=== PATIENT | female | born 1940 | race Caucasian/White ===

== ENCOUNTER 2016-12-13 22:15 | Observation (INO) | payer OTHER ==
--- NOTE | ~2016-12-13 | HP ---
History And Physical [facility] [id number] [place]. [address] NAME: QUETA MARTIN : 44 STATUS : ADM Anyi PAT#: [id number] AGE: 76 ADM/REG DATE : 12/13/16 MR#: [id number] REPORT SERV DATE: 12/14/16 DICTATED BY: ELIZA BOBBY DATE: 12/14/16 REPORT STATUS : Draft TRANSCRIBED BY: MODMavis DATE: 12/14/16 DATE OF ADMISSION: 12/13/2016 PRIMARY CARE PROVIDER: Danya Abad M.D. The patient has a commercial marketing specialist as well. CHIEF COMPLAINT: Chest pain onset 1300 yesterday. HISTORY OF PRESENT ILLNESS: This is a pleasant 76-year-old female with a history of rheumatoid arthritis on longstanding steroids for approximately two years which has recently been discontinued. She does also have hypertension and GERD. She went to the emergency room yesterday afternoon because she had pleuritic chest pain every time she took a deep breath and sitting up in position changes. She reports there is no exertional component and pain is better with shallow breaths and sitting still. She reports that her commercial marketing specialist wanted her to stop steroids and that she had developed left shoulder pain and so her primary care provider gave her prednisone Dosepak for this left shoulder aching one and half weeks ago. She recently completed it and now she reports that she has the chest pain deep in her muscles with muscle tightening sensation with deep breath and sitting up. She reports it over the left lower chest. She feels that it is secondary to weaning off steroids and came to the ER because "I think I need steroids again." She denies any shortness of breath, palpitations, cough, or any other symptoms. She reports that she is allergic to NSAIDs. She denies any muscle aches or generalized cramping. She does have general fatigue that is longstanding. PAST MEDICAL HISTORY: 1. Hypertension. 2. Pneumonia (remotely). 3. Rheumatoid arthritis on multiple medications including methotrexate and until recently steroids. She reports a recent flare in her shoulder after discontinuing steroids and that resolved with recent steroid Dosepak. 4. Longstanding steroid use for approximately two years, off it for approximately one week. 5. Sinus infection. 6. C. diff. 7. GERD. 8. Mild emphysema in the upper lobes per CTA 06/20/2014. PAST SURGICAL HISTORY: 1. Hysterectomy. 2. Remote thyroidectomy in 1976. 3. Tubal ligation. 4. Trigger finger release. 5. Bilateral carpal tunnel surgery. 6. Thumb surgery. 7. Right hip replacement. History And Physical [address] [address] NAME: QUETA MARTIN : 44 STATUS : ADM Anyi PAT#: [id number] AGE: 76 ADM/REG DATE : 12/13/16 MR#: [id number] REPORT SERV DATE: 12/14/16 DICTATED BY: ELIZA BOBBY DATE: 12/14/16 REPORT STATUS : Draft TRANSCRIBED BY: GAL DATE: 12/14/16 SOCIAL HISTORY: . She has a supportive daughter. She is not working. Former tobacco use, quitting in 2001. She denies alcohol or illicit drug use. She has no formal exercise program. FAMILY HISTORY: Brother with diabetes mellitus and myocardial infarction. Mother with myocardial infarction at the age of 52. REVIEW OF SYSTEMS: The patient's last stress test was approximately 2 years ago and it was a treadmill only stress test performed at the primary care provider's office prior to undergoing hip surgery. She reports it was normal. Previous to that, she had a stress echocardiogram 12/2011 and she reports that was normal as well. She denies ever having a cath arteriogram. As above per HPI, all other systems reviewed and negative. ALLERGIES: 1. IBUPROFEN: REACTION, ANXIETY. 2. CELEBREX: REACTION, SEVERE ANXIETY, ITCHING. 3. THE PATIENT TELLS ME SHE IS ALLERGIC TO ALL NSAIDS WITH REACTION OF ANXIETY (THIS IS NOT ON MED LIST). HOME MEDICATIONS: Reviewed and are as follows: 1. Fosamax 70 mg p.o.q.7 days on Wednesdays. 2. Aspirin 81 mg p.o. with supper. 3. Zyrtec 10 mg p.o. every morning. 4. Tylenol with aspirin one-to-two tabs p.o. daily p.r.n. headache/sinus pain. 5. Flonase nasal spray 2 sprays at bedtime in both nostrils. 6. Folic acid 1 tablet p.o. every morning. 7. Hydrocodone APAP 10/325 mg p.o. daily one tablet p.o. daily p.r.n. pain. 8. Irbesartan 300 mg p.o. every morning. 9. Methotrexate 17.5 mg p.o.q.7 days on Mondays. 10.Metoprolol tartrate 25 mg p.o. at breakfast and supper. 11.Montelukast 10 mg p.o. at bedtime. 12.Omeprazole 40 mg p.o. every morning. 13.The patient completed prednisone 10 mg 12 day taper Dosepak which she completed on 12/08/2016. 14.Restoril 15 mg p.o. at bedtime. 15.Maxzide 37.5/25 one tablet p.o. every morning. PHYSICAL EXAMINATION: VITAL SIGNS: Oxygen saturation 95% on room air. Weight 72.12 kg with a body mass index of 32.1. Temperature 98.4, pulse 97, initial blood pressure in the ER was 170/77, most recent blood pressure 170/87 (with a.m. blood pressure medications held for stress test. GENERAL: Well developed, well nourished. In no apparent distress. HEENT: Head normocephalic. No xanthelasma. Sclera clear, anicteric. Moist mucous membranes without pallor. No lymphadenopathy. No deficits noted. NECK: Trachea midline. Supple. No thyromegaly, JVD, or bruits. History And Physical [address] [address] NAME: QUETA MARTIN : 44 STATUS : ADM Anyi PAT#: [id number] AGE: 76 ADM/REG DATE : 12/13/16 MR#: [id number] REPORT SERV DATE: 12/14/16 DICTATED BY: ELIZA BOBBY DATE: 12/14/16 REPORT STATUS : Draft TRANSCRIBED BY: GAL DATE: 12/14/16 RESPIRATORY: Unlabored respirations. Breath sounds clear bilaterally to posterior auscultation. No wheezes, rhonchi or crackles. CARDIOVASCULAR: Regular rate and rhythm. No murmur, rub, or gallop appreciated. No chest wall tenderness to palpation. ABDOMEN: Soft, nontender, and nondistended. Active bowel sounds auscultated x4 quadrants. No organomegaly and no masses. No aortic bruit. EXTREMITIES: DP/PT and radial pulses 2+ bilaterally. No clubbing, cyanosis, or edema. SKIN: Warm, dry, intact. No rash. Normal turgor. MUSCULOSKELETAL: Moves all extremities in bed without difficulty. NEURO/PSYCH: Alert and oriented x3 with no acute distress. Affect appropriate to current situation. LABORATORY DATA: 1. BMP: Sodium 135, potassium was initially 2.9, after repletion 3.3, with subsequent repletion ordered by myself. Creatinine 1.14. Glucose 131. Magnesium was low at 1.3. 2. CBC: White blood cell count was 11.5 (recently completed steroid Dosepak). Hemoglobin 12, hematocrit 34.6, and platelets 343. 3. Troponin less than 0.02 x2. STUDIES: 1. Chest x-ray PA and lateral, no acute cardiopulmonary disease identified. 2. EKGs personally interpreted x2, normal sinus rhythm with occasional PVCs on 1, the other 1 normal sinus rhythm. Q-wave noted in lead III and AVF. No ischemia. 3. Telemetry normal sinus rhythm, 90s to 100. ASSESSMENT AND PLAN: 1. Pleuritic chest pain. This has atypical features. Acute coronary syndrome was ruled out with negative troponins and EKG with no ischemia. There were Q-waves noted in the inferior leads. Chest pain is provoked by inspiration and by position changes in bed, especially sitting up. She continues to have these symptoms if she takes deep breaths and moves in bed. Her symptoms are better if she lays still. Cardiac risk factors include age of 76, hypertension, obesity, family history of myocardial infarction. I will plan on a nuclear stress test today for risk stratification. If it is low risk with no ischemia, then the RN may discharge the patient home with followup with primary care provider in one week. The symptoms do appear to be musculoskeletal with a tightening sensation in her muscles when she takes a deep breath and moves. I recommended nonsteroidal anti-inflammatories but the patient reports she is afraid to try any NSAIDs as she develops anxiety with Motrin and Celebrex. She wishes to have a steroid Dosepak until she is able to see her primary care provider and commercial marketing specialist. Therefore, I will provide her with a Medrol Dosepak for her pleuritic chest pain symptoms. 2. Hypertension. She is to monitor her blood pressure daily, record, and bring it in to her primary care provider as her blood pressure is elevated at this time. She feels that her blood pressure is elevated because of her pleuritic chest pain. We will continue home medications on discharge which include Maxzide and irbesartan and metoprolol. 3. Hypokalemia. Continue to replete. I have requested that her potassium will be History And Physical [facility] [address] [place]. [address] NAME: QUETA MARTIN : 44 STATUS : ADM Anyi PAT#: [id number] AGE: 76 ADM/REG DATE : 12/13/16 MR#: [id number] REPORT SERV DATE: 12/14/16 DICTATED BY: ELIZA BOBBY DATE: 12/14/16 REPORT STATUS : Draft TRANSCRIBED BY: GAL DATE: 12/14/16 rechecked in 5-to-7 days by her primary care provider and a script has been left for this. I will prescribe potassium chloride on discharge with no refills. I suspect the hypokalemia is secondary to the hydrochlorothiazide medication. I encouraged her to also have a potassium-rich diet. Again, follow up with primary care provider in approximately one week for further monitoring and management of blood pressure. She is to check her blood pressure daily, record, and bring it in to PCP. 4. Obesity. I have encouraged weight loss and dietary changes. 5. GERD. This is noted and appears to be quiescent at this time. 6. Family history of ID, this is noted. 7. Rheumatoid arthritis. She was weaned off steroids on the after being on steroids for approximately two years. I will provide her with a Dosepak at this time per her request for the musculoskeletal/pleuritic symptoms. She will need to discuss this further with primary care provider and with the commercial marketing specialist. 8. Further recommendations are forthcoming for rounding logistics center manager for [facility] who will see her down in the stress testing area. BRANDON/GAL Eliza Bobby NP / [id number] CC: KHADAR August M.D.
[2016-12-13 21:01] LABS: BASOPHILS 0.4 %; BASOPHILS ABSOLUTE 0.05 10/3/uL (0.0-0.16); EOSINOPHILS 2.4 %; EOSINOPHILS ABSOLUTE 0.28 10/3/uL (0.0-0.53); ER CBC TAT 0 Hrs 08 Mins; HEMATOCRIT 34.6 % (36.0-48.0); IMMATURE GRANULOCYTES 0.3 %; IMMATURE GRANULOCYTES ABSOLUTE 0.03 10/3/uL (0.0-0.11); LYMPHOCYTES 31.3 %; LYMPHOCYTES ABSOLUTE 3.61 10/3/uL (0.67-4.30); MEAN CORPUSCULAR HEMOGLOB 32.3 pg (26.0-34.0); MEAN PLATELET VOLUME 9.8 fL (9.2-13.0); MONOCYTES ABSOLUTE 1.04 10/3/uL (0.21-1.20); NEUTROPHILS 56.6 %; NEUTROPHILS ABSOLUTE 6.53 10/3/uL (2.02-8.40); PLATELET COUNT 343 10/3/uL (150-400); RBC DISTRIBUTION WIDTH 14.2 % (12.0-16.0); RED CELL COUNT 3.71 10/6/uL (4.0-5.6); WHITE BLOOD CELLS 11.5 10/3/uL (4.5-10.5)
[2016-12-13 21:02] LABS: MANUAL DIFF NO %; MEAN CORPUS HGB CONC 34.7 g/dL (32.0-36.0); MEAN CORPUSCULAR VOLUME 93.3 fL (80-100)
[2016-12-13 21:09] LABS: INTERNATIONAL NORMAL RATI 1.1 UNITS (-); PARTIAL THROMBO TIME 26.3 SEC (22.5-37.2); PROTIME (NOT ORD) 13.8 SEC (12.0-14.5)
[2016-12-13 21:20] LABS: BUN (BLOOD UREA NITROGEN) 11 MG/DL (6-23); CALCIUM, SERUM 9.8 MG/DL (8.5-10.4); CHEST PAIN PROFILE TAT 0 Hrs 27 Mins; CHLORIDE, SERUM 99 MMOL/L (96-112); CO2 (CARBON DIOXIDE) 25 MMOL/L (24-34); CREATININE 1.14 MG/DL (0.55-1.02); GFR AFRICAN AMERICAN 55 ML/MIN (>=60); GFR NON AFRICAN AMERICAN 47 ML/MIN (>=60); SODIUM, SERUM 135 MMOL/L (135-148); TROPONIN I <0.02 NG/ML (<0.05)
[2016-12-13 21:22] LABS: GLUCOSE, SERUM 131 MG/DL (60-99); POTASSIUM, SERUM 2.9 MMOL/L (3.5-5.3)
[~2016-12-13 22:15] MED LIST: ASAEC PO; AVAP150 PO; CIP5 PO; FLAG500TAB PO; MAX25 PO; MOBIC15 MG PO; PRILOSEC40 MG PO; SINGULAIR1 PO; ZYRTEC ALLGY10 MG PO
[2016-12-13] MEDS ORDERED: FOSAMAX70 MG PO (23:21)
[2016-12-13] MEDS ORDERED: MTX2.5 PO (23:22)
[2016-12-13] MEDS ORDERED: REST15 PO (23:23)
[2016-12-13] MEDS ORDERED: MAX25 PO (23:23)
[2016-12-13] MEDS ORDERED: SINGULAIR1 PO (23:23)
[2016-12-13] MEDS ORDERED: FOLIC PO (23:23)
[2016-12-13] MEDS ORDERED: AVAPRO300 MG PO (23:24)
[2016-12-13] MEDS ORDERED: STERAPDS12 (23:24)
[2016-12-13] MEDS ORDERED: FLONASE NAS (23:24)
[2016-12-13] MEDS ORDERED: LOP25 PO (23:25)
[2016-12-13] MEDS ORDERED: HALF81 PO (23:25)
[2016-12-13] MEDS ORDERED: PRILOSEC40 MG PO (23:26)
[2016-12-13] MEDS ORDERED: ZYRTEC ALLGY10 MG PO (23:27)
[2016-12-13] MEDS ORDERED: NORCO1 TAB PO (23:29)
[2016-12-13] MEDS ORDERED: TYLENOL SEVE PO (23:32)
[2016-12-14 02:55] LABS: POTASSIUM, SERUM 3.3 MMOL/L (3.5-5.3)
[2016-12-14 04:57] LABS: TROPONIN I <0.02 NG/ML (<0.05)
[2016-12-14] MEDS ORDERED: KLOR-CON M2020 MEQ PO (12:56)
[2016-12-14] MEDS ORDERED: MEDROLPAK4 PO (12:57)
== END 2016-12-14 13:46 | disposition home or self-care (01) ==
LOC: ER 22:15 → CDU1 23:27
PROVIDERS: Emergency Medicine; Nurse Practitioner
DX: R07.81 Pleurodynia (principal); I10 Essential (primary) hypertension; E87.6 Hypokalemia; E66.9 Obesity, unspecified; K21.9 Gastro-esophageal reflux disease without esophagitis; M06.9 Rheumatoid arthritis, unspecified; J43.9 Emphysema, unspecified; E89.0 Postprocedural hypothyroidism; Z90.710 Acquired absence of both cervix and uterus; Z98.51 Tubal ligation status; Z87.01 Personal history of pneumonia (recurrent); Z96.641 Presence of right artificial hip joint; Z98.890 Other specified postprocedural states; Z87.891 Personal history of nicotine dependence; Z88.8 Allergy status to other drugs, medicaments and biological substances; Z79.82 Long term (current) use of aspirin; Z79.899 Other long term (current) drug therapy
CPT/HCPCS: 71020; 78452; 80048; 83735; 84132; 84484; 85025; 85610; 85730; 93005; 93017; 96374; 96376; 99285; A9270-GY; A9502; G0378; J3475

== ENCOUNTER 2017-01-04 15:59 | Emergency (ER) | payer OTHER ==
[~2017-01-04 15:59] MED LIST changes: +AVAPRO300 MG PO; +FLONASE NAS; +FOLIC PO; +FOSAMAX70 MG PO; +HALF81 PO; +KLOR-CON M2020 MEQ PO; +LOP25 PO; +MEDROLPAK4 PO; +MTX2.5 PO; +NORCO1 TAB PO; +REST15 PO; +STERAPDS12; +TYLENOL SEVE PO
[2017-01-04 19:55] LABS: BASOPHILS 0.3 %; BASOPHILS ABSOLUTE 0.04 10/3/uL (0.0-0.16); EOSINOPHILS 1.1 %; EOSINOPHILS ABSOLUTE 0.16 10/3/uL (0.0-0.53); ER CBC TAT 0 Hrs 07 Mins; HEMATOCRIT 35.6 % (36.0-48.0); HEMOGLOBIN 12.1 g/dL (12.0-16.0); IMMATURE GRANULOCYTES 2.1 %; IMMATURE GRANULOCYTES ABSOLUTE 0.31 10/3/uL (0.0-0.11); LYMPHOCYTES 24.8 %; MEAN CORPUSCULAR HEMOGLOB 31.8 pg (26.0-34.0); MEAN CORPUSCULAR VOLUME 93.4 fL (80-100); MEAN PLATELET VOLUME 8.5 fL (9.2-13.0); MONOCYTES 7.8 %; MONOCYTES ABSOLUTE 1.13 10/3/uL (0.21-1.20); NEUTROPHILS 63.9 %; NEUTROPHILS ABSOLUTE 9.25 10/3/uL (2.02-8.40); RBC DISTRIBUTION WIDTH 14.2 % (12.0-16.0); RED CELL COUNT 3.81 10/6/uL (4.0-5.6); WHITE BLOOD CELLS 14.5 10/3/uL (4.5-10.5)
[2017-01-04 19:58] LABS: PLATELET COUNT 568 10/3/uL (150-400)
[2017-01-04 20:14] LABS: A/G RATIO 0.8 (0.7-1.9); ALBUMIN 3.3 G/DL (3.5-5.0); BUN (BLOOD UREA NITROGEN) 16 MG/DL (6-23); CHLORIDE, SERUM 100 MMOL/L (96-112); CO2 (CARBON DIOXIDE) 28 MMOL/L (24-34); CREATININE 1.01 MG/DL (0.55-1.02); GFR AFRICAN AMERICAN 64 ML/MIN (>=60); GFR NON AFRICAN AMERICAN 55 ML/MIN (>=60); GLOBULIN 4.1 G/DL (2.5-4.1); GLUCOSE, SERUM 99 MG/DL (60-99); SGOT(AST) 8 U/L (5-40); SGPT(ALT) 14 U/L (5-65); SODIUM, SERUM 134 MMOL/L (135-148); TOTAL BILIRUBIN 0.6 MG/DL (0-1.2); TOTAL PROTEIN 7.4 G/DL (6.0-8.5); TROPONIN I <0.02 NG/ML (<0.05)
[2017-01-04 20:15] LABS: ALKALINE PHOSPHATASE 46 U/L (45-117)
[2017-01-04 20:29] LABS: ASCORBIC ACID (UR NOT ORDER) 20 (NEG); BILIRUBIN, URINE NEGATIVE (NEG); ER URINALYSIS TAT 0 Hrs 09 Mins; KETONE, URINE TRACE MG/DL (NEG); LEUKOCYTE ESTERASE(NOT OR NEG (NEG); NITRITE (URINE) NEG (NEG); WBC (NOT ORDERED) (RFLEX) 2 (0-5)
== END 2017-01-04 23:09 | disposition home or self-care (01) ==
LOC: ER 15:59
PROVIDERS: Emergency Medicine
DX: R19.7 Diarrhea, unspecified (principal); R11.2 Nausea with vomiting, unspecified; I10 Essential (primary) hypertension; K21.9 Gastro-esophageal reflux disease without esophagitis; M19.90 Unspecified osteoarthritis, unspecified site; Z98.51 Tubal ligation status; Z90.710 Acquired absence of both cervix and uterus; Z87.891 Personal history of nicotine dependence; Z88.6 Allergy status to analgesic agent; Z88.8 Allergy status to other drugs, medicaments and biological substances; Z79.82 Long term (current) use of aspirin; Z79.899 Other long term (current) drug therapy
CPT/HCPCS: 74176; 80053; 81001; 83690; 84484; 85025; 93005; 96374; 96376; 99284; J2405